=== PATIENT | female | born 1935 | race Two or more races ===

== ENCOUNTER 2019-06-18 05:51 | Inpatient (IN) | payer SELFPAY ==
[~2019-06-18] VITALS: Ht 152.4 cm; Wt 60.3 kg
--- NOTE | 2019-06-18 06:00 | NUR ---
JAY RA AND DTRs FROM HOME FOR C/O AMS. PT AWAKE AND RESPONSIVE, WELSH SPEAKING. GOWNED UP AND WAS PLACED ON A MONITOR ,VS. WILL CONT TO MONITOR ,
[2019-06-18] MEDS ORDERED: METO25TA6 PO (06:06)
[2019-06-18] MEDS ORDERED: HYDR12.55 PO (06:06)
[2019-06-18] MEDS ORDERED: LISI-603 PO (06:06)
--- NOTE | 2019-06-18 06:27 | NUR ---
PICKED UP FOR CT
--- NOTE | 2019-06-18 06:28 | NUR ---
URINE COLLECTED AND SENT TO THE LAB
[2019-06-18 06:30] LABS: BASOPHILS % (AUTO) 0.5 % (0.0-2.0); HEMATOCRIT 36 % (33-45); HEMOGLOBIN 11.6 g/dL (11.5-14.8); LYMPHOCYTES # (AUTO) 1.9 /CMM (0.8-4.8); LYMPHOCYTES % (AUTO) 21.8 % (20.0-44.0); MEAN CORPUSCULAR HGB CONC 32 g/dl (31.0-36.0); MEAN CORPUSCULAR VOLUME 87 fL (82-100); MONOCYTES # (AUTO) 0.4 /CMM (0.1-1.30); NEUTROPHILS # (AUTO) 6.3 /CMM (1.8-8.9); NEUTROPHILS % (AUTO) 71.7 % (43.0-81.0); PLATELET COUNT (AUTO) 231 /CMM (150-450); RED BLOOD CELL COUNT(AUTO) 4.19 MIL/uL (4.0-5.2); WHITE BLOOD COUNT (AUTO) 8.8 K/uL (4.3-11.0)
[2019-06-18 06:43] LABS: CALCIUM, SERUM 9.3 mg/dL (8.5-10.1); CARBON DIOXIDE 21 mmol/L (21-32); CHLORIDE 100 mmol/L (98-107); CREATININE 1.4 mg/dL (0.6-1.3); GLUCOSE 184 mg/dL (74-106); POTASSIUM 3.9 mmol/L (3.5-5.1); SODIUM SERUM 134 mmol/L (136-145); UREA NITROGEN, BLOOD 30 mg/dL (7-18)
[2019-06-18 06:47] LABS: ALANINE AMINOTRANSFERASE 17 U/L (12-78); ALBUMIN 3.7 g/dL (3.4-5.0); ALKALINE PHOSPHATASE 109 U/L (46-116); ASPARTATE AMINOTRANSFERASE 23 U/L (15-37); BILIRUBIN,DIRECT 0.1 mg/dL (0.0-0.2); BILIRUBIN,TOTAL 0.4 mg/dL (0.2-1.0); TOTAL PROTEIN, SERUM 7.7 g/dL (6.4-8.2)
[2019-06-18 06:50] LABS: APPEARANCE,URINE CLEAR (CLEAR); BILIRUBIN,URINE NEGATIVE (NEGATIVE); BLOOD, URINE NEGATIVE Ery/uL (NEGATIVE); COLOR,URINE YELLOW (YELLOW); KETONES,URINE NEGATIVE (NEGATIVE); LEUKOCYTE ESTERASE ,URINE NEGATIVE (NEGATIVE); NITRITE, URINE NEGATIVE (NEGATIVE); PROTEIN,URINE NEGATIVE (NEGATIVE); UGLUCOSE NEGATIVE (NEGATIVE); UROBILINOGEN,URINE 0.2 EU/dL (0.2)
[2019-06-18] MEDS ORDERED: IV NS 0.9% 500 ML BAG IV ONE (07:30)
--- NOTE | 2019-06-18 08:12 | NUR ---
called nursing terminal supervisor for tele bed.
--- NOTE | 2019-06-18 08:44 | NUR ---
patient evaluated by Yohannes Shipley DNP.
[2019-06-18] MEDS ORDERED: hydrALAZINE HCL IV 20 MG VIAL ONE (08:46)
--- NOTE | 2019-06-18 08:50 | NUR ---
BP ELEVATED, PER NAM, GIVE HYDRALAZINE 10MG IV X1.
--- NOTE | 2019-06-18 08:59 | NUR ---
REPORT GIVEN TO МАРИЯ MARC FOR DILLAN.
[2019-06-18] MEDS ORDERED: hydrALAZINE HCL IV 20 MG VIAL IV ONE (09:00)
--- NOTE | 2019-06-18 09:15 | NUR ---
patient transferred to room 119-1 via acls protocol. No distress noted. Endorsed to Joyce MARC.
[2019-06-18] MEDS ORDERED: MAGNESIUM HYDROXIDE 30 ML UDC PO PRN (10:00)
[2019-06-18] MEDS ORDERED: TEMAZEPAM 15 MG CAPSULE PO PRN (10:00)
[2019-06-18] MEDS ORDERED: HYDROCHLOROTHIAZIDE 25 MG TABLET PO SCH (10:00)
[2019-06-18] MEDS ORDERED: MAG HYDROX/AL HYDROX/SIMETH 30 ML UDC PO PRN (10:00)
[2019-06-18] MEDS ORDERED: ACETAMINOPHEN 325 MG TABLET PO PRN (10:00)
[2019-06-18] MEDS ORDERED: Z GUARD REMEDY 2 OZ OINT TP PRN (10:00)
[2019-06-18] MEDS ORDERED: ONDANSETRON HCL/PF 4 MG/2 ML VIAL IVP PRN (10:00)
[2019-06-18] MEDS: METOPROLOL TARTRATE 25 MG TABLET PO SCH ×2 (10:30→17:08)
--- NOTE | 2019-06-18 11:00 | NUR ---
RN ADMITTING NOTE: RECEIVED PATIENT THIS MORNING FROM ER. NO RESPIRATORY DISTRESS NOTED. PATIENT IS ON O2 VIA NC AT 2L/MIN. LUNGS CLEAR UPON AUSCULTATION. PATIENT ON TELE MONITOR, SR. PATIENT HAS A #20 ON LFA FLUSHING WITH RESISTANCE, WILL ATTEMPT NEW IV LINE. NO EDEMA NOTED. NO C/O CHEST PAIN. PATIENT C/O EXTERNAL CHEST PAIN D/T PARAMEDICS DOING COMPRESSIONS. BRUISING NOTED ON CHEST, PICTURES TAKEN AND PLACED IN CHART. PER FAMILY, PATIENT WAS AMBULATORY AT HOME BUT IS WEAK AT THIS TIME, BED REST, INCONTINENT. RYAN AWARE OF ADMISSION WITH ADMITTING ORDERS. DAUGHTER AT BEDSIDE. FULL CODE. NKA. MRSA SWAB SAMPLE COMPLETE. SAFETY MEASURES IMPLEMENTED, BED IN LOWEST POSITION, LOCKED, SIDE RAILS UP X2. CALL LIGHT WITHIN REACH. WILL CONTINUE TO MONITOR PATIENT FOR ANY CHANGES.
[2019-06-18] MEDS: IV NS 0.9% 1,000 ML IV PRN (11:28)
[2019-06-18] MEDS: PANTOPRAZOLE 40 MG TABLET.DR PO SCH (11:40)
[2019-06-18 12:00] VITALS: BP 94/64
[2019-06-18 16:00] VITALS: BP 165/72
--- NOTE | 2019-06-18 19:10 | NUR ---
attorney at law opening notes Received Pt from morning nurse. Pt is resting in bed comfortably. Pt's son at the bed side. Pt is alert and orientedX2. Respiration is normal in 2 L NC. No SOB. No S/S of distress noted. Tele monitor showed SR HR at 74. IV sites at RFA# 20 is clean, intact, patent and infusing well NS @ 75 ml/hr. Safety precautions is maintained. Bed at low position, brakes locked, side rails upX3, HOB elevated, call light is within reach. Will continue to monitor.
[2019-06-18 20:00] VITALS: BP 133/48
--- NOTE | 2019-06-18 20:06 | NUR ---
RN CLOSING NOTE: PATIENT REMAINS IN ROOM, RESTING. NO ACUTE DISTRESS NOTED. NO RESPIRATORY DISTRESS NOTED. TOLERATING O2 WELL. ON TELE, READING SINUS WITH MULTIPLE PVS. #20 ON RFA, PREVIOUS IV LINE REMOVED. PATEINT'S SON AT BEDSIDE. ASKED HIM IF HE KNOWS ABOUT PATENT'S PNA/FLU VACCINE AND HE IS UNSURE WELL. SAFETY MEASURES IMPLEMENTED, BED IN LOWEST POSITION, LOCKED, SIDE RAILS UP X2. CALL LIGHT WITHIN REACH. WILL CONTINUE TO MONITOR PATIENT FOR ANY CHANGES.
[2019-06-19] MEDS: IV NS 0.9% 1,000 ML IV PRN ×2 (00:40→15:23)
[2019-06-19 04:00] VITALS: BP 148/63
--- NOTE | 2019-06-19 06:51 | NUR ---
RN medsurg closing notes Pt is sleeping in bed comfortably. Pt is alert and orientedX2. Pt's son at the bedside. Respiration is normal in 2 L NC. No SOB. No S/S of distress noted. IV sites at RFA # 20 is clean, intact, patent and infusing well NS @ 75 ml/hr. VS is stable. Kept Pt clean, dry and comfortable. All needs met and attended. Safety precautions is maintained. Bed at low position, brakes locked, side rails up, HOB elevated, and call light is within reach. Will endorse to morning nurse for DILLAN.
[2019-06-19 06:57] LABS: BASOPHILS % (AUTO) 0.1 % (0.0-2.0); EOSINOPHILS % (AUTO) 0.3 % (0.0-6.0); HEMATOCRIT 35 % (33-45); HEMOGLOBIN 11.2 g/dL (11.5-14.8); LYMPHOCYTES # (AUTO) 1.2 /CMM (0.8-4.8); LYMPHOCYTES % (AUTO) 15.3 % (20.0-44.0); MEAN CORPUSCULAR HGB CONC 32 g/dl (31.0-36.0); MEAN CORPUSCULAR VOLUME 87 fL (82-100); MONOCYTES # (AUTO) 0.8 /CMM (0.1-1.30); MONOCYTES % (AUTO) 10.6 % (2.0-12.0); NEUTROPHILS # (AUTO) 5.8 /CMM (1.8-8.9); NEUTROPHILS % (AUTO) 73.7 % (43.0-81.0); PLATELET COUNT (AUTO) 218 /CMM (150-450); RED BLOOD CELL COUNT(AUTO) 3.95 MIL/uL (4.0-5.2); WHITE BLOOD COUNT (AUTO) 7.9 K/uL (4.3-11.0)
[2019-06-19 07:09] LABS: CALCIUM, SERUM 8.9 mg/dL (8.5-10.1); CREATININE 1.2 mg/dL (0.6-1.3); MAGNESIUM 1.8 mg/dL (1.8-2.4); POTASSIUM 3.9 mmol/L (3.5-5.1)
[2019-06-19 07:21] LABS: THYROID STIMULATING HORMONE 0.255 uIU/mL (0.358-3.74)
[2019-06-19 08:00] VITALS: BP 188/94
[2019-06-19] MEDS: PANTOPRAZOLE 40 MG TABLET.DR PO SCH (09:04)
[2019-06-19] MEDS: METOPROLOL TARTRATE 25 MG TABLET PO SCH ×2 (09:05→17:22)
--- NOTE | 2019-06-19 10:27 | NUR ---
RN OPENING NOTE: RECEIVED PATIENT IN BED THIS MORNING RESTING. PATIENT IS ALERT X2, DANISH SPEAKING, ABLE TO FOLLOW COMMANDS. NO SIGNS OF ACUTE DISTRESS NOTED. PATIENT IS ON O2 VIA NC AT 2L/MIN. LUNGS CLEAR UPON AUSCULTATION. #20 ON RFA, FLUSHES WELL, SITE C/D/I, NO SIGNS OF COMPLICATION NOTED. PATIENT C/O EXTERNAL CHEST PAIN 6/10 ONLY WHEN YOU TOUCH HER D/T CPR PERFORMED BY PARAMEDICS PRIOR TO ADMISSION. SAFETY MEASURES IMPLEMENTED, BED IN LOWEST POSITION, LOCKED, SIDE RAILS UP X2. CALL LIGHT WITHIN REACH. WILL CONTINUE TO MONITOR PATIENT FOR ANY CHANGES.
--- NOTE | 2019-06-19 10:30 | NUR ---
CONTACTED MANUEL KUHN IN REGARDS TO ADDING A PRN MEDICATION FOR INCREASED BP. SHE WILL REVIEW AND INFORM ME ABOUT ANY CHANGES IN MEDICATIONS.
[2019-06-19] MEDS: HYDROCODONE/APAP 5/325MG 1 EACH TABLET PO PRN (11:12)
[2019-06-19 16:00] VITALS: BP 169/78
[2019-06-19] MEDS: hydrALAZINE HCL IV 20 MG VIAL IV PRN (17:22)
--- NOTE | 2019-06-19 19:53 | NUR ---
RN CLOSING NOTE: PATIENT IS CURRENTLY IN BED RESTING. NO SIGNS OF ACUTE DISTRESS NOTED. PATIENT IS ON O2 VIA NC AT 2L/MIN. #20 ON RFA, FLUSHES WELL, SITE C/D/I, NO SIGNS OF COMPLICATION NOTED. SAFETY MEASURES IMPLEMENTED, BED IN LOWEST POSITION, LOCKED, SIDE RAILS UP X2. CALL LIGHT WITHIN REACH. ENDORSED TO FOLLOWING SHIFT FOR CONTINUITY OF CARE.
[2019-06-19 20:00] VITALS: BP 155/69
--- NOTE | 2019-06-19 20:57 | NUR ---
ANTONY/RN AT INITIAL ROUNDING AT 1999 RECEIVED PATIENT AWAKE, ALERT, ORIENTED, COMFORTABLE, NO C/O PAIN, NO DISTRESS NOTED, SON AT BEDSIDE, CALL LIGHT IN REACH. WILL MONITOR.
--- NOTE | 2019-06-20 00:55 | NUR ---
ANTONY/RN PATIENT IS SLEEPING AT THIS TIME, APPEAR COMFORTABLE, NO SIGNS OF DISTRESS NOTED, CALL LIGHT IN REACH, WILL CONTINUE TO MONITOR.
[2019-06-20 04:00] VITALS: BP 142/67
[2019-06-20] MEDS: IV NS 0.9% 1,000 ML IV PRN (06:11)
--- NOTE | 2019-06-20 06:13 | NUR ---
ANTONY/RN PATIENT STILL SLEEPING, APPEAR COMFORTABLE, NO SIGNS OF DISTRESS NOTED, CALL LIGHT IN REACH. ALL NEEDS ATTENDED AT THIS TIME, WILL CONTINUE TO MONITOR.
[2019-06-20 07:06] LABS: BASOPHILS % (AUTO) 0.2 % (0.0-2.0); EOSINOPHILS % (AUTO) 0.1 % (0.0-6.0); HEMATOCRIT 34 % (33-45); HEMOGLOBIN 11.1 g/dL (11.5-14.8); LYMPHOCYTES # (AUTO) 1.1 /CMM (0.8-4.8); LYMPHOCYTES % (AUTO) 13.2 % (20.0-44.0); MEAN CORPUSCULAR HGB CONC 33 g/dl (31.0-36.0); MEAN CORPUSCULAR VOLUME 87 fL (82-100); MONOCYTES % (AUTO) 12.6 % (2.0-12.0); NEUTROPHILS # (AUTO) 6.1 /CMM (1.8-8.9); NEUTROPHILS % (AUTO) 73.9 % (43.0-81.0); PLATELET COUNT (AUTO) 192 /CMM (150-450); RED BLOOD CELL COUNT(AUTO) 3.92 MIL/uL (4.0-5.2); WHITE BLOOD COUNT (AUTO) 8.2 K/uL (4.3-11.0)
[2019-06-20 07:42] LABS: POTASSIUM 4.1 mmol/L (3.5-5.1)
--- NOTE | 2019-06-20 07:45 | NUR ---
RN OPENING NOTES RECEIVED PATIENT IN BED, AWAKE AND ALERT. ABLE TO STATE NAME BUT NOT ORIENTED TO TIME AND PLACE. LAO SPEAKING, VERBALLY RESPONSIVE AND ABLE TO MAKE NEEDS KNOWN. FAMILY AT BEDSIDE. ON NASAL CANNULA @2L, SATURATING WELL. IN NO ACUTE DISTRESS NOTED. IV ACCESS ON RFA #20, INTACT, PATENT AND FLUSHED WELL. WITH ON GOING NS @75ML /HR WITH REMAINING 850ML ON THE BAG. NO SIGNS OF INFILTRATION NOTED. SAFETY MEASURES IN PLACED, CALL LIGHT WITHIN REACH. WILL CONTINUE TO MONITOR .
[2019-06-20 07:57] LABS: MAGNESIUM 1.7 mg/dL (1.8-2.4); PHOSPHORUS 2.6 mg/dL (2.5-4.9)
[2019-06-20 08:00] VITALS: BP 155/71
[2019-06-20] MEDS: PANTOPRAZOLE 40 MG TABLET.DR PO SCH (08:04)
[2019-06-20] MEDS: METOPROLOL TARTRATE 25 MG TABLET PO SCH ×2 (08:21→17:04)
[2019-06-20] MEDS: Magnesium 1GM/D5W 100ML PREMIX 100 ML IV SCH ×2 (09:51→11:18)
[2019-06-20 16:00] VITALS: BP 149/74
--- NOTE | 2019-06-20 19:46 | NUR ---
MS RN OPENING NOTE RECEIVED PATIENT IN BED. A/OX3, BENGALI SPEAKING. ON OXYGEN 2L/MIN VIA NASAL CANNULA. RESPIRATIONS ARE EVEN AND UNLABORED. NO S/S SOB NOTED. IN NO APPARENT DISTRESS. IV ACCESS IN RFA#20 RUNNING NS@75ML/HR. BED IS LOW AND LOCKED, HOB ELEVATED, SIDE RIALS UPX2. CALL LIGHT WITHIN REACH. FAMILY AT BEDSIDE. WILL CONTINUE TO MONITOR.
[2019-06-20 20:00] VITALS: BP 175/81
--- NOTE | 2019-06-20 20:09 | NUR ---
RN CLOSING NOTES PATIENT IN BED, ASLEEP. IN NO APPARENT DISTRESS NOTED. ON NASAL CANNULA @2L SATURATING WELL. NO SOB NOTED. IV ACCESS ON RFA #20, RUNNING NS @75ML /HR , INTACT, PATENT. NO INFILTRATION NOTED. DENIES ANY PAIN OR DISCOMFORT AT THE MOMENT. KEPT CLEAN AND DRY. ALL NEEDS MET. SAFETY MEASURES IN PLACED, CALL LIGHT WITHIN REACH. ENDORSED TO PM RN FOR DILLAN. Addendum: 06/20/19 at 2013 by ALEJANDRA ALCOCER RN PLEASE COLLECT URINE WHEN PATIENT GOES TO BATHROOM
[2019-06-20 21:13] LABS: APPEARANCE,URINE CLEAR (CLEAR); BILIRUBIN,URINE NEGATIVE (NEGATIVE); BLOOD, URINE NEGATIVE Ery/uL (NEGATIVE); COLOR,URINE YELLOW (YELLOW); KETONES,URINE NEGATIVE (NEGATIVE); LEUKOCYTE ESTERASE ,URINE TRACE (NEGATIVE); NITRITE, URINE NEGATIVE (NEGATIVE); PROTEIN,URINE NEGATIVE (NEGATIVE); UGLUCOSE NEGATIVE (NEGATIVE); UROBILINOGEN,URINE 0.2 EU/dL (0.2)
[2019-06-20] MEDS: HYDROCODONE/APAP 5/325MG 1 EACH TABLET PO PRN (21:17)
[2019-06-20] MEDS: hydrALAZINE HCL IV 20 MG VIAL IV PRN (21:18)
--- NOTE | 2019-06-20 21:18 | NUR ---
MS RN NOTE ADMINISTERED PRN NORCO 5/325 FOR PAIN 10/10 IN MEDICAL CHEST. WILL CONTINUE TO MONITOR. ADMINISTERED PRN APRESOLINE 10MG FOR BP 181/ 65HR 84. WILL CONTINUE TO MONITOR.
[2019-06-20 21:55] LABS: BACTERIA,URINE 1+ /HPF (None Seen); RBC,URINE 0-2 /HPF (0-2); SQUAMOUS EPITHELIAL CELL,UR Few /HPF (None Seen)
[2019-06-21 04:00] VITALS: BP 153/63
[2019-06-21] MEDS: IV NS 0.9% 1,000 ML IV PRN (05:50)
--- NOTE | 2019-06-21 07:15 | NUR ---
MS RN OPENING NOTE RECEIVED BEDSIDE REPORT. PT ASLEEP IN BED, ON 02 VIA NC 2L/MIN, SATURATING WELL, RESPIRATIONS EVEN AND UNLABORED, NO SINGS OF RESPIRATORY DISTRESS NOTED. IV SITE ON LEFT WRIST G20 INTACT, PATENT, NS INFUSING AT 75CC/HR, NO SIGNS OF INFILTRATION NOTED. BED IN LOW POSITION, LOCKED, CALL LIGHT WITHIN REACH.
[2019-06-21 07:24] LABS: BASOPHILS % (AUTO) 0.4 % (0.0-2.0); EOSINOPHILS % (AUTO) 0.8 % (0.0-6.0); HEMATOCRIT 35 % (33-45); HEMOGLOBIN 11.3 g/dL (11.5-14.8); LYMPHOCYTES # (AUTO) 1.4 /CMM (0.8-4.8); LYMPHOCYTES % (AUTO) 20.5 % (20.0-44.0); MEAN CORPUSCULAR HGB CONC 32 g/dl (31.0-36.0); MEAN CORPUSCULAR VOLUME 89 fL (82-100); MONOCYTES % (AUTO) 14.3 % (2.0-12.0); NEUTROPHILS # (AUTO) 4.3 /CMM (1.8-8.9); PLATELET COUNT (AUTO) 213 /CMM (150-450); RED BLOOD CELL COUNT(AUTO) 3.99 MIL/uL (4.0-5.2); WHITE BLOOD COUNT (AUTO) 6.7 K/uL (4.3-11.0)
[2019-06-21 07:25] LABS: CALCIUM, SERUM 8.7 mg/dL (8.5-10.1); CREATININE 1.2 mg/dL (0.6-1.3); MAGNESIUM 2.2 mg/dL (1.8-2.4); POTASSIUM 4.2 mmol/L (3.5-5.1)
[2019-06-21] MEDS: PANTOPRAZOLE 40 MG TABLET.DR PO SCH (07:36)
[2019-06-21 08:00] VITALS: BP_SYST 156; BP_SYST 159; BP_DIAS 42; BP_DIAS 60
[2019-06-21 08:02] LABS: THYROID STIMULATING HORMONE 0.534 uIU/mL (0.358-3.74)
[2019-06-21] MEDS: METOPROLOL TARTRATE 25 MG TABLET PO SCH ×2 (08:43→16:44)
[2019-06-21] MEDS: CEPHALEXIN MONOHYDRATE 250 MG CAPSULE PO SCH ×2 (13:21→20:00)
[2019-06-21 16:00] VITALS: BP 155/92
[2019-06-21] MEDS ORDERED: SOD FERRIC GLUC 125 MG in IV NS 0.9% 100 ML IV SCH (19:00)
--- NOTE | 2019-06-21 19:00 | NUR ---
RN OPENING NOTES: REPORT RECEIVED FROM AM SHIFT NURSE. PATIENT IN BED, AWAKE, AND VERBALLY RESPONSIVE. CZECH-SPEAKING. ON O2 AT 3 LPM VIA NC, TOLERATING WELL. NO SOB. NO C/O PAIN. IV ACCESS (L) G22 NOT FLUSHING. WILL INSERT A NEW IV LINE. SAFETY PRECAUTIONS IMPLEMENTED. BED ALARM ON, LOCKED, AND LOW POSITION. CALL LIGHT PLACED WITHIN REACH. WILL CONT. TO MONITOR. 1944: OLD IV SITE REMOVED. NEW IV ACCESS (R) WRIST G22 INSERTED WITH GOOD BLOOD RETURN. CLEAN, DRY, INTACT. FLUSHING WELL. PATIENT ON NS AT 75 MLS/HR. WILL CONT. TO MONITOR.
[2019-06-21] MEDS: CYANOCOBALAMIN 1,000 MCG/ML VIAL IM SCH (19:51)
[2019-06-21 20:00] VITALS: BP 153/80
[2019-06-22] MEDS: IV NS 0.9% 1,000 ML IV PRN (00:14)
[2019-06-22 04:00] VITALS: BP 126/88
[2019-06-22] MEDS: CEPHALEXIN MONOHYDRATE 250 MG CAPSULE PO SCH ×2 (04:32→10:20)
[2019-06-22] MEDS: HYDROCODONE/APAP 5/325MG 1 EACH TABLET PO PRN (04:33)
--- NOTE | 2019-06-22 07:28 | NUR ---
RN CLOSING NOTE: PATIENT IN BED, ASLEEP, BUT EASILY AROUSABLE. NO RESPIRATORY DISTRESS. NO C/O PAIN AT THIS TIME. SON AT BEDSIDE. PATIENT IN STABLE CONDITION DURING SHIFT. OB STOOL STILL PENDING FOR COLLECTION. ENDORSED TO AM SHIFT NURSE FOR CONTINUITY OF CARE.
[2019-06-22 07:33] LABS: BASOPHILS % (AUTO) 0.3 % (0.0-2.0); HEMATOCRIT 33 % (33-45); HEMOGLOBIN 10.6 g/dL (11.5-14.8); LYMPHOCYTES # (AUTO) 1.3 /CMM (0.8-4.8); LYMPHOCYTES % (AUTO) 22.7 % (20.0-44.0); MEAN CORPUSCULAR HGB CONC 33 g/dl (31.0-36.0); MEAN CORPUSCULAR VOLUME 87 fL (82-100); MONOCYTES # (AUTO) 0.7 /CMM (0.1-1.30); MONOCYTES % (AUTO) 13.2 % (2.0-12.0); NEUTROPHILS # (AUTO) 3.4 /CMM (1.8-8.9); NEUTROPHILS % (AUTO) 61.8 % (43.0-81.0); PLATELET COUNT (AUTO) 220 /CMM (150-450); RED BLOOD CELL COUNT(AUTO) 3.74 MIL/uL (4.0-5.2); WHITE BLOOD COUNT (AUTO) 5.5 K/uL (4.3-11.0)
[2019-06-22 07:40] LABS: CALCIUM, SERUM 8.2 mg/dL (8.5-10.1); CREATININE 1.1 mg/dL (0.6-1.3); MAGNESIUM 1.8 mg/dL (1.8-2.4); PHOSPHORUS 3.1 mg/dL (2.5-4.9); POTASSIUM 4.2 mmol/L (3.5-5.1)
[2019-06-22 08:00] VITALS: BP 109/58
[2019-06-22] MEDS ORDERED: CEPH250C PO (08:54)
[2019-06-22] MEDS ORDERED: FERR325T23 PO (08:54)
[2019-06-22] MEDS ORDERED: PANT40TA2 PO (08:54)
[2019-06-22] MEDS: CYANOCOBALAMIN 1,000 MCG/ML VIAL IM SCH (09:00)
[2019-06-22 10:00] VITALS: BP 135/88
[2019-06-22] MEDS: PANTOPRAZOLE 40 MG TABLET.DR PO SCH (10:04)
[2019-06-22 10:07] LABS: IMMUNOGLOBULIN A, SERUM 215 mg/dL (64-422); IMMUNOGLOBULIN G, SERUM 1172 mg/dL (700-1600); IMMUNOGLOBULIN M, SERUM 118 mg/dL (26-217)
[2019-06-22] MEDS: METOPROLOL TARTRATE 25 MG TABLET PO SCH (10:19)
[2019-06-22 12:00] VITALS: BP 98/44
[2019-06-22] MEDS ORDERED: SOD FERRIC GLUC 125 MG in IV NS 0.9% 100 ML IV SCH (14:00)
--- NOTE | 2019-06-22 16:34 | NUR ---
alert, oriented, all info obtained from family members, daughters, completed her bone scan just now. RX for Protonix, Keflex, and Ferrous sulfate, po, all explained and have them refilled at the pharmacy of their choice patient left the floor now, no distress noted, no pain voiced.
[2019-06-25 06:07] LABS: *SPE A/G RATIO 0.8 (0.7-1.7); *SPE ALPHA-1-GLOBULIN 0.4 g/dL (0.0-0.4); *SPE GLOBULIN, TOTAL 3.6 g/dL (2.2-3.9); *SPE M-SPIKE Not Observed g/dL (Not Observed); *SPEGAMMA GLOBULIN 1.2 g/dL (0.4-1.8)
== END 2019-06-22 17:00 | disposition home or self-care (01) | DRG 682 ==
LOC: ER 05:52 → TELE1 08:51 → MEDSG1 21:44
PROVIDERS: ADMIT Nurse Practitioner Acute Care; ATTEND Registered Nurse
DX: N17.0 Acute kidney failure with tubular necrosis (principal); G93.41 Metabolic encephalopathy; E87.2 Acidosis; N39.0 Urinary tract infection, site not specified; J98.11 Atelectasis; E87.1 Hypo-osmolality and hyponatremia; C90.00 Multiple myeloma not having achieved remission; I10 Essential (primary) hypertension; Z79.899 Other long term (current) drug therapy; I70.0 Atherosclerosis of aorta; F03.90 Unspecified dementia, unspecified severity, without behavioral disturbance, psychotic disturbance, mood disturbance, and anxiety; Z82.49 Family history of ischemic heart disease and other diseases of the circulatory system; M89.9 Disorder of bone, unspecified; E86.1 Hypovolemia; K74.60 Unspecified cirrhosis of liver; E53.8 Deficiency of other specified B group vitamins; E11.65 Type 2 diabetes mellitus with hyperglycemia; D64.9 Anemia, unspecified; B96.89 Other specified bacterial agents as the cause of diseases classified elsewhere
CPT/HCPCS: 36415; 70450-TC; 71045-TC; 71250-TC; 77075-TC; 78306-TC; 80048-TC; 80061-TC; 80076-TC; 81000-TC; 82232; 82728-TC; 82784; 83540-TC; 83605-TC; 83735-TC; 84100-TC; 84155; 84165; 84439-TC; 84443-TC; 84484-TC; 85025-TC; 85730-TC; 86334; 86803; 87040-TC; 87081-TC; 87086-TC; 97116-TC; 97530-TC; A9503; G0378; J0360; J2916; J3420; J3475; J7030; J7040